=== PATIENT | female | born 1965 | race Caucasian/White ===

== ENCOUNTER 2018-11-13 12:43 | Emergency (ER) | payer OTHER ==
[~2018-11-13] VITALS: Ht 167.6 cm; Wt 110.2 kg
[~2018-11-13 12:43] MED LIST: ANAPROX DS550 MG PO; B12INJ IM; BACTRIM DS TAB1 EACH PO; BP MED; CIPROFLOXACIN500 M1 PO; HYDROCODON-ACE1 EAC7 PO; IBUPROFEN 800800 M1 PO; NORCO 5-325 TA1 EACH PO; NORFLEX100 MG PO; PREDNISONE 1 MG1 M1 PO; PRINIVIL5 MG; PYRIDIUM200 MG PO; TORADOL 10 MG T10 MG PO; VITAMIN D1000 UNI1 PO; [UNRECOGNIZED DRUG - REMARK]
[2018-11-13] MEDS ORDERED: TRAMADOL 50 MG50 MG PO (14:13)
[2018-11-13 14:24] VITALS: BP 132/80
== END 2018-11-13 14:25 | disposition home or self-care (01) ==
LOC: M.ERS 12:43
DX: S39.012A Strain of muscle, fascia and tendon of lower back, initial encounter (principal); S29.012A Strain of muscle and tendon of back wall of thorax, initial encounter; I10 Essential (primary) hypertension; Z88.1 Allergy status to other antibiotic agents; Z88.5 Allergy status to narcotic agent; Z88.8 Allergy status to other drugs, medicaments and biological substances; Z90.710 Acquired absence of both cervix and uterus; Z90.49 Acquired absence of other specified parts of digestive tract; Z98.890 Other specified postprocedural states; V49.49XA Driver injured in collision with other motor vehicles in traffic accident, initial encounter; Y93.89 Activity, other specified; Y92.89 Other specified places as the place of occurrence of the external cause; Y99.8 Other external cause status